=== PATIENT | male | born 1955 | race Asian ===

== ENCOUNTER 2017-07-07 19:50 | Emergency (ER) | payer SELFPAY ==
[~2017-07-07] VITALS: Ht 177.8 cm; Wt 88.5 kg
[2017-07-07 19:55] VITALS: BP_SYST 146
--- NOTE | 2017-07-07 19:55 | NUR ---
Patient to [facility] for evaluation. Report given to TIFFANY Otoole.
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
--- NOTE | 2017-07-07 20:15 | NUR ---
SONIA Edward at bedside for medical evaluation.
--- NOTE | 2017-07-07 20:19 | NUR ---
Written and verbal consent obtained from patient for blood alcohol, name and verified by patient. Disinfected patient's skin with iodine that did not contain alcohol or other volatile organic compound. Collected the blood from the subject named by venipuncture, in the presence of Officer ID# [id number]. Used a sterile, dry hypodermic needle and dry vacuum blood collection. The dry vacuum blood collection was supplied by the officer named above. Withdrew a specimen of blood from left anticubital of the subject named above. Inverted the blood tube several times to ensure that the preservative and anticoagulant were thoroughly mixed in the blood specimen. I initialed the blood tube label for identification. The labeled blood tube was handed directly to the Officer named above. The blood tube stopper remained in place while I had possession of the blood tube. The Officer placed tube into envelope and sealed it in my presence. Envelope initialed by myself and Officer named above. Patient tolerated well, bandage applied, and bleeding controlled.
[2017-07-07 20:29] VITALS: BP_SYST 146
--- NOTE | 2017-07-07 20:29 | NUR ---
Patient discharged to [facility] in handcuffs.
--- NOTE | 2017-07-07 20:29 | NUR ---
Patient given written and verbal discharge instructions and verbalizes understanding. ER MD discussed with patient the results and treatment provided. Patient in stable condition. ID arm band removed. Patient educated on pain management and to follow up with PMD. Pain Scale 0/10. Opportunity for questions provided and answered.
== END 2017-07-07 20:29 ==
LOC: SED 19:50
DX: Z02.89 Encounter for other administrative examinations (principal); M79.602 Pain in left arm; I10 Essential (primary) hypertension; Z88.0 Allergy status to penicillin; V43.52XA Car driver injured in collision with other type car in traffic accident, initial encounter; Y93.89 Activity, other specified; Y92.410 Unspecified street and highway as the place of occurrence of the external cause; Y99.8 Other external cause status
CPT/HCPCS: 99283